=== PATIENT | female | born 1980 | race Caucasian/White ===

== ENCOUNTER 2019-09-26 13:49 | Emergency (ER) | payer SELFPAY ==
[2019-09-26] MEDS ORDERED: ACET/COD 300 MG/30 MG STARTER PACK 6 TAB BTL PO STA (14:26)
[2019-09-26] MEDS ORDERED: Acetaminophen-Codeine 300-30mg TAB PO STA (14:26)
--- NOTE | 2019-09-26 14:27 | ED ---
ENT HPI - General Chief complaint: Dental/Oral Stated complaint: mouth pain/ head pain Time Seen by Provider: 09/26/19 14:17 Source: patient Mode of arrival: ambulatory Limitations: no limitations - History of Present Illness Initial comments: Patient is a 39-year-old female with history of poor dentition presenting to emergency Department with a chief complaint of dental pain. Patient reports recent patient moved from [place] and is switching her dental insurance. Patient reports dental pain in the left lower side. Patient reports she is scheduled to see a dentist. Prior to coming to [place] she was placed on amoxicillin by the dentist. Patient reports no improvement in symptoms. She denies any swelling but does report pain with mastication. Denies difficulty swallowing - Related Data Previous Rx's Medication Instructions Recorded Amoxicillin/Potassium Clav 1 tab PO Q12HR #20 tab 09/26/19 [Augmentin 875-125 Tablet] Allergies Allergy/AdvReac Type Severity Reaction Status Date / Time No Known Allergies Allergy Verified 09/26/19 13:58 Review of Systems ROS Statement: Those systems with pertinent positive or pertinent negative responses have been documented in the HPI. ROS Other: All systems not noted in ROS Statement are negative. Past Medical History Past Medical History: Hypertension History of Any Multi-Drug Resistant Organisms: None Reported Past Surgical History: No Surgical Hx Reported Past Psychological History: Depression Smoking Status: Never smoker Past Alcohol Use History: None Reported Past Drug Use History: None Reported General Exam Limitations: no limitations General appearance: alert, in no apparent distress Head exam: Present: atraumatic, normocephalic, normal inspection Eye exam: Present: normal appearance, PERRL, EOMI Pupils: Present: normal accommodation ENT exam: Present: normal exam, mucous membranes moist, TM's normal bilaterally, normal external ear exam. Absent: normal oropharynx (Poor dentition. Multiple caries to teeth. Inflammation along the gumline. No signs of periapical abscesses. No oral lesions noted.) Neck exam: Present: normal inspection, full ROM Respiratory exam: Present: normal lung sounds bilaterally Cardiovascular Exam: Present: regular rate, normal rhythm, normal heart sounds GI/Abdominal exam: Present: soft. Absent: distended, tenderness, guarding Extremities exam: Present: normal inspection, full ROM Back exam: Present: normal inspection, full ROM Neurological exam: Present: alert, oriented X3 Psychiatric exam: Present: normal affect, normal mood Skin exam: Present: warm, dry, intact, normal color Course Vital Signs 09/26/19 13:56 Temperature 98.2 F Pulse Rate 94 Respiratory 16 Rate Blood Pressure 135/90 O2 Sat by Pulse 97 Oximetry Medical Decision Making - Medical Decision Making Patient a 39-year-old male presents emergency Department with chief complaint of tooth pain. Patient does have a history of poor dentition. Patient is going to see a dentist as soon as her insurance switched over. Patient is currently on amoxicillin. There has been no improve. Patient will be started on Augmentin. Patient also given Tylenol 3 in the ED and discharged with a Tylenol 3 starter pack. Advised not to drive or operate heavy machinery when taking medication. On exam no signs of periapical abscesses noted, however there is dental inflammation along the gum on the left lower side. Strict return parameters were thoroughly discussed with patient was understanding and agreeable. Patient advised to follow-up with a dentist. Case discussed with physician. Disposition Clinical Impression: Dental infection, [facility] Disposition: HOME SELF-CARE Condition: Stable Instructions (If sedation given, give patient instructions): Toothache (ED) Additional Instructions: Please take prescribed medication as directed. Please follow with a dentist. Please return to emergency department if symptoms worsen. Prescriptions: Amoxicillin/Potassium Clav [Augmentin 875-125 Tablet] 1 tab PO Q12HR #20 tab Is patient prescribed a controlled substance at d/c from ED?: No Referrals: None,Stated [Primary Care Provider] - 1-2 days Time of Disposition: 14:27
[2019-09-26 15:28] VITALS: BP 128/78; PULSE 72; RESP 19; TEMP 98.4
== END 2019-09-26 15:32 | disposition home or self-care (01) ==
LOC: EC 13:49
DX: K04.7 Periapical abscess without sinus (principal); K02.9 Dental caries, unspecified
CPT/HCPCS: 99283

== ENCOUNTER 2019-10-31 12:14 | Emergency (ER) | payer MEDICARE ==
[2019-10-31 12:40] VITALS: BP 132/79; PULSE 92; RESP 18; TEMP 98.3
--- NOTE | 2019-10-31 14:18 | ED ---
General Adult HPI - General Chief complaint: ENT Stated complaint: Ear pain Time Seen by Provider: 10/31/19 13:58 Source: patient, RN notes reviewed Mode of arrival: ambulatory Limitations: no limitations - History of Present Illness Initial comments: 39-year-old female with a past medical history of hypertension presents to the emergency Department for right ear discomfort. She states she has felt pressure popping in her right ear for about a week. States hearing ronquillo muffled. Denies fevers or chills. patient admits to history of ALLERGIES and is not taking anything for this. Denies congestion at this time. Denies fevers or chills. Denies headaches. Denies any left ear discomfort.Patient has no other complaints at this time including shortness of breath, chest pain, abdominal pain, nausea or vomiting, headache, or visual changes. - Related Data Previous Rx's Medication Instructions Recorded Amoxicillin/Potassium Clav 1 tab PO Q12HR #20 tab 09/26/19 [Augmentin 875-125 Tablet] Fluticasone Nasal [place] [Flonase 1 spray EA NOSTRIL DAILY 7 Days #1 10/31/19 Nasal [place]] bottle Loratadine [Claritin] 10 mg PO DAILY #20 tab 10/31/19 Allergies Allergy/AdvReac Type Severity Reaction Status Date / Time No Known Allergies Allergy Verified 10/31/19 12:40 Review of Systems ROS Statement: Those systems with pertinent positive or pertinent negative responses have been documented in the HPI. ROS Other: All systems not noted in ROS Statement are negative. Past Medical History Past Medical History: Hypertension History of Any Multi-Drug Resistant Organisms: None Reported Past Surgical History: No Surgical Hx Reported Past Psychological History: Depression Smoking Status: Never smoker Past Alcohol Use History: None Reported Past Drug Use History: None Reported General Exam Limitations: no limitations General appearance: alert, in no apparent distress Head exam: Present: atraumatic, normocephalic, normal inspection Eye exam: Present: normal appearance, PERRL, EOMI. Absent: scleral icterus, conjunctival injection, periorbital swelling ENT exam: Present: normal exam, normal oropharynx, mucous membranes moist, TM's normal bilaterally (Tympanic membrane nonerythematous, nonbulging, possibly serous posterior to the TM.), normal external ear exam Neck exam: Present: normal inspection, full ROM. Absent: tenderness, meningismus, lymphadenopathy Respiratory exam: Present: normal lung sounds bilaterally. Absent: respiratory distress, wheezes, rales, rhonchi, stridor Cardiovascular Exam: Present: regular rate, normal rhythm, normal heart sounds. Absent: systolic murmur, diastolic murmur, rubs, gallop, clicks Neurological exam: Present: alert, normal gait Course Vital Signs 10/31/19 12:37 Temperature 98.3 F Pulse Rate 92 Respiratory 18 Rate Blood Pressure 132/79 O2 Sat by Pulse 98 Oximetry Medical Decision Making - Medical Decision Making I do not see any evidence of infection of the right ear. Given history of fullness of the right ear and popping sensation patient likely has eustachian tube dysfunction. I did prescribe patient a nasal spray as well as Claritin. I directed her to follow up with primary care in . She'll return here if any worsening symptoms. Disposition Clinical Impression: Ear discomfort, Eustachian tube dysfunction Disposition: HOME SELF-CARE Condition: Good Instructions (If sedation given, give patient instructions): Earache (ED) Additional Instructions: Please use nasal spray as directed. Take Claritin as well. Follow up with primary care in 1-2 days. If you have worsening symptoms return to the emergency department. Prescriptions: Loratadine [Claritin] 10 mg PO DAILY #20 tab Fluticasone Nasal [place] [Flonase Nasal [place]] 1 spray EA NOSTRIL DAILY 7 Days #1 bottle Is patient prescribed a controlled substance at d/c from ED?: No Referrals: Félix Garcia MD [REFERRING] - 1-2 days Jeremie Silvestre DO [Doctor of Osteopathic Medicine] - 1-2 days Time of Disposition: 14:15
== END 2019-10-31 16:10 | disposition home or self-care (01) ==
LOC: EC 12:14
DX: H69.81 Other specified disorders of Eustachian tube, right ear (principal); H92.01 Otalgia, right ear; I10 Essential (primary) hypertension
CPT/HCPCS: 99282

== ENCOUNTER 2021-02-27 | Emergency (ER) | payer MEDICARE, OTHER ==
--- NOTE | 2021-02-27 18:04 | ED ---
Recheck HPI - General Chief Complaint: Recheck/Abnormal Lab/Rx Stated Complaint: med refill Time Seen by Provider: 02/27/21 17:48 Source: patient, RN notes reviewed Mode of arrival: ambulatory Limitations: no limitations - History of Present Illness Initial Comments: Patient is a 40-year-old female that presents to emergency room for medication refills. She'll she's tried contacting her primary care who is yet to refill her psychiatric medications for venlafaxine Quetiapine and citalopram. She notes that she's been out of medication for 2 days. She notes that she understands that the ER currently prescribed a short duration of medications. She had no other issues or complaints at this time. She denied any pain chest pain first breath headache nausea vomiting diarrhea constipation fever fatigue chills. - Related Data Previous Rx's Medication Instructions Recorded Amoxicillin/Potassium Clav 1 tab PO Q12HR #20 tab 09/26/19 [Augmentin 875-125 Tablet] Fluticasone Nasal [place] [Flonase 1 spray EA NOSTRIL DAILY 7 Days #1 10/31/19 Nasal [place]] bottle Loratadine [Claritin] 10 mg PO DAILY #20 tab 10/31/19 Citalopram Hydrobromide 20 mg PO DAILY 7 Days #7 tablet 02/27/21 [Citalopram HBr] QUEtiapine FUMARATE 25 mg PO HS 7 Days #7 tablet 02/27/21 Venlafaxine HCl ER [Effexor XR] 150 mg PO DAILY 7 Days #7 cap 02/27/21 Allergies Allergy/AdvReac Type Severity Reaction Status Date / Time Sulfa (Sulfonamide Allergy Unknown Verified 02/27/21 17:38 Antibiotics) Review of Systems ROS Statement: Those systems with pertinent positive or pertinent negative responses have been documented in the HPI. ROS Other: All systems not noted in ROS Statement are negative. Past Medical History Past Medical History: Hypertension History of Any Multi-Drug Resistant Organisms: None Reported Past Surgical History: No Surgical Hx Reported Past Psychological History: Depression Smoking Status: Former smoker Past Alcohol Use History: None Reported Past Drug Use History: None Reported General Exam Limitations: no limitations General appearance: alert, in no apparent distress, obese Head exam: Present: atraumatic, normocephalic, normal inspection Eye exam: Present: normal appearance, PERRL, EOMI. Absent: scleral icterus, conjunctival injection, periorbital swelling Respiratory exam: Present: normal lung sounds bilaterally. Absent: respiratory distress, wheezes, rales, rhonchi, stridor Cardiovascular Exam: Present: regular rate, normal rhythm, normal heart sounds. Absent: systolic murmur, diastolic murmur, rubs, gallop, clicks GI/Abdominal exam: Present: soft, normal bowel sounds. Absent: distended, tenderness, guarding, rebound, rigid Extremities exam: Present: normal inspection, full ROM, normal capillary refill. Absent: tenderness, pedal edema, joint swelling, calf tenderness Neurological exam: Present: alert, oriented X3, CN II-XII intact Psychiatric exam: Present: normal affect, normal mood Skin exam: Present: warm, dry, intact, normal color. Absent: rash Course Vital Signs 02/27/21 17:39 Temperature 98.6 F Pulse Rate 95 Respiratory 18 Rate Blood Pressure 147/84 O2 Sat by Pulse 98 Oximetry Medical Decision Making - Medical Decision Making Patient is a 40-year-old female into the emergency room needing medication refills for psychiatric medications. No lab testing or imaging needed at this point. Case discussed with Dr. Vieyra, patient can discharge home with follow-up to primary care for for refills of her medications. Disposition Clinical Impression: Encounter for medication refill Disposition: HOME SELF-CARE Condition: Stable Instructions (If sedation given, give patient instructions): Medicine Refill (ED) Additional Instructions: Please return to the Emergency Department if symptoms worsen or any other concerns. Follow-up with primary care in the next 2-3 days. Only a seven-day supply medications was prescribed as we can't do full months. Prescriptions: Citalopram Hydrobromide [Citalopram HBr] 20 mg PO DAILY 7 Days #7 tablet Venlafaxine HCl ER [Effexor XR] 150 mg PO DAILY 7 Days #7 cap QUEtiapine FUMARATE 25 mg PO HS 7 Days #7 tablet Is patient prescribed a controlled substance at d/c from ED?: No Referrals: Santana Ortiz MD [Primary Care Provider] - 1-2 days Time of Disposition: 18:03
== END 2021-02-27 19:07 | disposition home or self-care (01) ==
CPT/HCPCS: 99281

== ENCOUNTER 2023-01-11 16:11 | Emergency (ER) | payer MEDICARE, OTHER ==
[2023-01-11 16:23] VITALS: TEMP 98.1
[2023-01-11] MEDS ORDERED: ASPIRIN 81 MG PO STA (16:33)
[2023-01-11] MEDS ORDERED: SODIUM CHLORIDE 0.9% 500 ML 500 ML IV STA (16:33)
--- NOTE | 2023-01-11 16:42 | ED ---
Chest Pain HPI - General Chief Complaint: Chest Pain Stated Complaint: CHEST PAIN Time Seen by Provider: 01/11/23 16:25 Source: patient Mode of arrival: ambulatory Limitations: no limitations - History of Present Illness Initial Comments: Patient is a 42-year-old female history of hypertension presenting with chief complaint of chest pain. Patient started having a dull centralized chest pain that started today. She states that it improves with standing and walking and worsens with sitting. She does admit to some vague epigastric discomfort. No nausea or vomiting. No shortness of breath or palpitations. States that she's had a mild cough. No worsening of pain with deep breathing or coughing. No radiation of the pain down the arm or up the neck. No fevers or chills. No sweating. - Related Data Previous Rx's Medication Instructions Recorded Amoxicillin/Potassium Clav 1 tab PO Q12HR #20 tab 09/26/19 [Augmentin 875-125 Tablet] Fluticasone Nasal [place] [Flonase 1 spray EA NOSTRIL DAILY 7 Days #1 10/31/19 Nasal [place]] bottle Loratadine [Claritin] 10 mg PO DAILY #20 tab 10/31/19 Citalopram Hydrobromide 20 mg PO DAILY 7 Days #7 tablet 02/27/21 [Citalopram HBr] Citalopram Hydrobromide 20 mg PO DAILY 7 Days #7 tablet 02/27/21 [Citalopram HBr] QUEtiapine FUMARATE 25 mg PO HS 7 Days #7 tablet 02/27/21 QUEtiapine FUMARATE 25 mg PO HS 7 Days #7 tablet 02/27/21 Venlafaxine HCl ER [Effexor XR] 150 mg PO DAILY 7 Days #7 cap 02/27/21 Venlafaxine HCl ER [Effexor XR] 150 mg PO DAILY 7 Days #7 cap 02/27/21 Allergies Allergy/AdvReac Type Severity Reaction Status Date / Time Sulfa (Sulfonamide Allergy Unknown Verified 01/11/23 16:22 Antibiotics) Review of Systems ROS Statement: Those systems with pertinent positive or pertinent negative responses have been documented in the HPI. ROS Other: All systems not noted in ROS Statement are negative. EKG Findings - EKG Comments: EKG Findings:: Sinus rhythm ventricular rate 89. [place] interval 149. QRS 100. QT 336. QTc 383. No ischemic changes. Past Medical History Past Medical History: Hypertension History of Any Multi-Drug Resistant Organisms: None Reported Past Surgical History: No Surgical Hx Reported Past Psychological History: Depression Smoking Status: Former smoker Past Alcohol Use History: None Reported Past Drug Use History: None Reported General Exam Limitations: no limitations General appearance: alert, in no apparent distress Head exam: Present: atraumatic, normocephalic, normal inspection Eye exam: Present: EOMI. Absent: periorbital swelling Neck exam: Present: normal inspection, full ROM Respiratory exam: Present: normal lung sounds bilaterally. Absent: respiratory distress, wheezes, rales, rhonchi, stridor Cardiovascular Exam: Present: regular rate, normal rhythm, normal heart sounds. Absent: systolic murmur, diastolic murmur, rubs, gallop, clicks Neurological exam: Present: alert, oriented X3, CN II-XII intact Psychiatric exam: Present: normal affect, normal mood Skin exam: Present: warm, dry, intact, normal color. Absent: rash Course Vital Signs 01/11/23 01/11/23 01/11/23 16:19 17:21 17:43 Temperature 98.1 F Pulse Rate 95 84 Pulse Rate [ 80 Nail Making Machine Tender ] Respiratory 18 20 Rate Blood Pressure 151/99 122/73 O2 Sat by Pulse 98 99 Oximetry 01/11/23 17:45 Temperature Pulse Rate Pulse Rate [ Nail Making Machine Tender ] Respiratory 20 Rate Blood Pressure O2 Sat by Pulse Oximetry Chest Pain MDM - MDM Was pt. sent in by a medical professional or institution (, PA, WET END SUPERVISOR, urgent care, hospital, or jail...) When possible be specific @ -No Did you speak to anyone other than the patient for history (EMS, parent, family, police, friend...)? What history was obtained from this source @ -No Did you review nursing and triage notes (agree or disagree)? Why? @ -I reviewed and agree with nursing and triage notes Were old charts reviewed (outside hosp., previous admission, EMS record, old EKG, old radiological studies, urgent care reports/EKG's, jail records)? Report findings @ -No old charts were reviewed Differential Diagnosis (chest pain, altered mental status, abdominal pain women, abdominal pain men, vaginal bleeding, weakness, fever, dyspnea, syncope, headache, dizziness, GI bleed, back pain, seizure, CVA, palpatations, mental health, musculoskeletal)? @ -MDM Differential Chest Pain: Stable Angina, Unstable Angina, STEMI, NSTEMI Aortic Dissection, Pneumothorax, Musculoskeletal, Esophageal Spasm GERD, Cholecystitis, Pancreatitis, Zoster This is not meant to be an all-inclusive list. EKG interpreted by me (3pts min.). @ -As above X-rays interpreted by me (1pt min.). @ -Chest x-ray shows no acute process CT interpreted by me (1pt min.). @ -None done U/S interpreted by me (1pt. min.). @ -None done What testing was considered but not performed or refused? (CT, X-rays, U/S, labs)? Why? @ -None What meds were considered but not given or refused? Why? @ -None Did you discuss the management of the patient with other professionals (professionals i.e. , PA, WET END SUPERVISOR, lab, RT, psych nurse, social work msw, historical society director, teacher, chief juvenile probation officer, special education case manager)? Give summary @ -No Was smoking cessation discussed for >3mins.? @ -No Was critical care preformed (if so, how long)? @ -No Were there social determinants of health that impacted care today? How? (Homelessness, low income, unemployed, alcoholism, drug addiction, transportation, low edu. Level, literacy, decrease access to med. care, assisted, rehab)? @ -No Was there de-escalation of care discussed even if they declined (Discuss DNR or withdrawal of care, Hospice)? DNR status @ -No What co-morbidities impacted this encounter? (DM, HTN, Smoking, COPD, CAD, Cancer, CVA, ARF, Chemo, Hep., AIDS, mental health diagnosis, sleep apnea, morbid obesity)? @ -None Was patient admitted / discharged? Hospital course, mention meds given and route, prescriptions, significant lab abnormalities, going to OR and other pertinent info. @ -Discharge. Patient is a 42-year-old female presenting with chief complaint of chest pain. Started today. It improves with exertion. Physical examination is unremarkable. Lab work is grossly unremarkable. Chest x-ray shows no acute process. EKG shows no ischemic changes. Heart score is 1. On reassessment patient reports that she is feeling better after receiving fluid bolus and aspirin. Is comfortable with discharge with outpatient follow-up at this time. Follow-up with PCP. Report back to ER with any new or worsening symptoms. Discussed return parameters and answered all questions. Patient conveyed verbal understanding and agreed to the plan. I discussed this case in detail with my attending Dr. Black Undiagnosed new problem with uncertain prognosis? @ -No Drug Therapy requiring intensive monitoring for toxicity (Heparin, Nitro, Insulin, Cardizem)? @ -No Were any procedures done? @ -No Diagnosis/symptom? @ -Atypical chest pain Acute, or Chronic, or Acute on Chronic? @ -Acute Uncomplicated (without systemic symptoms) or Complicated (systemic symptoms)? @ -Uncomplicated Side effects of treatment? @ -No Exacerbation, Progression, or Severe Exacerbation? @ -No Poses a threat to life or bodily function? How? (Chest pain, [place], [place], pneumonia, PE, COPD, DKA, ARF, appy, cholecystitis, CVA, Diverticulitis, Homicidal, Suicidal, threat to staff... and all critical care pts) @ -No Disposition Clinical Impression: Atypical chest pain Disposition: HOME SELF-CARE Condition: Good Instructions (If sedation given, give patient instructions): Chest Pain (ED) Additional Instructions: Follow-up with PCP and cardiology. Report back to ER with any new or worsening symptoms. These are included but not limited to worsening chest pain, shortness of breath, palpitations, radiation of pain, arm or up the neck, excessive sweating, vomiting. Is patient prescribed a controlled substance at d/c from ED?: No Referrals: Santana Ortiz MD [Primary Care Provider] - 1-2 days Roberto Faust MD [STAFF PHYSICIAN] - 1-2 days Time of Disposition: 17:55
[2023-01-11 17:12] LABS: Basophils # (A) 0.1 k/uL (0-0.2); Basophils % (A) 1 %; Eosinophils # (A) 0.2 k/uL (0-0.7); Eosinophils % (A) 3 %; HCT 44.4 % (34.0-46.0); HGB 15.4 gm/dL (11.4-16.0); Lymphocytes # (A) 2.3 k/uL (1.0-4.8); Lymphocytes % (A) 31 %; MCH 30.9 pg (25.0-35.0); MCHC 34.7 g/dL (31.0-37.0); Mean Platelet Volume 7.1; Monocytes # (A) 0.3 k/uL (0-1.0); Monocytes % (A) 4 %; Neutrophils # (A) 4.4 k/uL (1.3-7.7); Neutrophils % (A) 59 %; Platelet Count 281 k/uL (150-450); RBC 4.98 m/uL (3.80-5.40); RDW 12.3 % (11.5-15.5); WBC 7.5 k/uL (3.8-10.6)
[2023-01-11 17:25] LABS: ALT 25 U/L (4-34); AST 24 U/L (14-36); African American GFR (CKD) >90 (>60 ml/min/1.73 sqM); Albumin 4.1 g/dL (3.5-5.0); Alkaline Phosphatase 64 U/L (38-126); Amylase 58 U/L (30-110); Anion Gap 6 mmol/L; Blood Urea Nitrogen 13 mg/dL (7-17); Calcium 9.6 mg/dL (8.4-10.2); Carbon Dioxide 28 mmol/L (22-30); Chloride 105 mmol/L (98-107); Glucose 110 mg/dL (74-99); Lipase 74 U/L (23-300); Magnesium 2.2 mg/dL (1.6-2.3); Non-African American GFR(CKD) 88 (>60 ml/min/1.73 sqM); Potassium 4.4 mmol/L (3.5-5.1); Sodium 139 mmol/L (137-145); Total Bilirubin 0.3 mg/dL (0.2-1.3); Total Protein 6.8 g/dL (6.3-8.2)
[2023-01-11 17:33] LABS: INR 0.9 (<1.2); Partial Thromboplastin Time 22.2 sec (22.0-30.0)
--- NOTE | 2023-01-11 17:38 | XR ---
EXAMINATION TYPE: XR chest 2V DATE OF EXAM: 01/11/2023 COMPARISON: NONE HISTORY: Chest pain TECHNIQUE: Frontal and lateral views of the chest are obtained. FINDINGS: There is no focal air space opacity. No evidence for pneumothorax. No pleural effusion. The cardiac silhouette size is within normal limits. The osseous structures are grossly intact. IMPRESSION: 1. No acute cardiopulmonary process.
[2023-01-11 17:44] LABS: Appearance,Urine Clear (Clear); Bilirubin,Urine Negative (Negative); Blood,Urine Negative (Negative); Color,Urine Yellow; Glucose,Urine (UA) Negative (Negative); Ketones,Urine Negative (Negative); Leukocyte Esterase,Urine Negative (Negative); Nitrite,Urine Negative (Negative); PH, Urine 5.5 (5.0-8.0); Protein,Urine Negative (Negative); Specific Gravity,Urine 1.019 (1.001-1.035); Urobilinogen,Urine <2.0 mg/dL (<2.0)
[2023-01-11 18:08] VITALS: BP 136/68; PULSE 65; RESP 16
== END 2023-01-11 18:08 | disposition home or self-care (01) ==
LOC: EC 16:11
DX: R07.89 Other chest pain (principal); I10 Essential (primary) hypertension; F32.A Depression, unspecified; Z88.1 Allergy status to other antibiotic agents; Z88.2 Allergy status to sulfonamides; Z87.891 Personal history of nicotine dependence; Z20.822 Contact with and (suspected) exposure to COVID-19
CPT/HCPCS: 36415; 71046; 80053; 81003; 81025; 82150; 83690; 83735; 84484; 85025; 85610; 85730; 87636; 93005; 96360; 99285